=== PATIENT | male | born 1970 | race Caucasian/White ===

== ENCOUNTER 2020-08-18 16:52 | Emergency (ER) | payer OTHER, SELFPAY ==
[2020-08-18] VITALS (20 sets, daily range): BP systolic 117–171; BP diastolic 71–84; PULSE 52–70; RESP 14–24; TEMP 36.5; O2SAT 95–97
--- NOTE | 2020-08-18 16:45 | RT.EKG_ITS ---
APPROVED REPORT Exam: Resting ECG Patient Location: E HR:64 bpm ECG Measurements Heart Rate 64 AXIS WA 175 P 67 QRSd 102 QRS 86 QT 377 T 15 QTc 389 Conclusion Sinus rhythm...normal P axis, V-rate 60- 99 flat t waves III, aVF, no stemi
--- NOTE | 2020-08-18 17:00 | DI.RAD_ITS ---
EXAM: XR PORTABLE CHEST AP CLINICAL HISTORY: chest pain TECHNIQUE: 2D digital imaging was performed. COMPARISON: No exams were available for comparison FINDINGS: LUNGS: Clear. No pleural abnormality seen. HEART: Normal. MEDIASTINUM: Normal. BONES: Degenerative changes in both shoulders. IMPRESSION: No acute pulmonary findings. DATA REPOSITORY: RADIATION DOSE DELIVERED:
[2020-08-18 17:24] LABS: Abs Immature Grans 0.01 10^3/uL (0.0-0.06); Absolute Basophil Count 0.04 10^3/uL (0.0-0.2); Absolute Eosinophil Count 0.17 10^3/uL (0.0-0.7); Absolute Lymphocyte Count 1.86 10^3/uL (1.2-3.4); Absolute Monocyte Count 0.44 10^3/uL (0.1-0.8); Absolute Neutrophil Count 3.86 10^3/uL (1.2-6.7); Basophils % 0.6; Eosinophils % 2.7; HCT 45.2 % (40.0-50.0); HGB 15.6 g/dL (13.5-17.5); Immature Grans % 0.2; Lymphocytes % 29.2; MCH 31.5 pg (27.0-33.0); MCHC 34.5 % (32.0-36.0); MCV 91.1 fL (80-95); MPV 9.5 fL (8.0-11.0); Monocytes % 6.9; Neutrophils % 60.4; Nucleated RBC 0 %; Platelet Count 285 10^3/uL (130-400); RBC 4.96 10^6/uL (4.36-5.78); RDW 12.6 % (11.8-14.1); RDW-SD 42.3 fL; WBC 6.38 10^3/uL (4.4-10.8)
--- NOTE | 2020-08-18 17:42 | DI.VRAD_ITS ---
PROCEDURE INFORMATION: Exam: XR Chest, 1 View Exam date and time: 08/18/2020 5:09 PM Age: 50 years old Clinical indication: Chest pain TECHNIQUE: Imaging protocol: XR of the chest Views: 1 view. Other technique: Portable exam. COMPARISON: No relevant prior studies available. FINDINGS: Lungs: Unremarkable. No consolidation. Pleural space: Unremarkable. No pleural effusion. No pneumothorax. Heart/Mediastinum: Unremarkable. No cardiomegaly. Bones/joints: Unremarkable. Other findings: The patient is lordotically positioned. IMPRESSION: No evidence for acute abnormality. Dictated and Authenticated by: Liz Andres MD. Ordering:TORY Oneal MD
--- NOTE | 2020-08-18 17:53 | ED.GENADUL_ITS ---
Discharge Plan Disposition Patient Disposition: HOME Condition: Stable Discharge Details Clinical Impression: Chest pain Primary Care Provider: Connie Strong ED Provider: Jm Lomax Home Meds and New Rx's Prescriptions: Continued sildenafil [Viagra] 25 mg Tablet 50 mg PO DAILY PRNRF: 0 Discharge Instructions Instructions: Chest Pain (ED) Additional Instructions: Please take aspirin 325 mg daily. Please have outpatient stress test performed ideally within the next 72 hours. Please contact your primary care physician to arrange follow-up. Return to the ER immediately for any worsening or new concerning symptoms. Referrals: Connie Strong [Primary Care Provider] - Medical Decision Making 50-year-old male here with chest pain over the past 1 week, more persistent today. Pain seems musculoskeletal in etiology. Pain started after raking heavy snow off his roof. He has focal tenderness that reproduces the pain over left parasternal. Considered ACS given single risk factor of coronary artery disease in a primary relative at a young age. Screening ECG was reviewed and interpreted by me -no STEMI, please see report. Repeat ECG was interpreted by me and no significant change, please see report. Initial troponin and delta troponin at 3 hours both negative. Patient observed on cardiac monitoring during ED observation did not have any significant arrhythmias. Patient remained hemodynamically stable. Chest x-ray was reviewed and interpreted by radiology: No evidence for acute abnormality. Plan will be for outpatient follow-up. He has an appointment with his primary care physician tomorrow. While I suspect this is musculoskeletal, I recommended cardiac stress test in the outpatient setting. Usual customary discharge instructions were reviewed with the patient. HPI General Mode of arrival: ambulatory . Date/Time Provider Initiated Documentation: 08/18/20 17:07 . Limitations to Documentation: no limitations . Information obtained by: patient . HPI Narrative: 50-year-old male presents with chief complaint of chest pain. Patient states he said chest pain waxing and waning over the past 1 week. Pain is been mild to moderate. More persistent today and has been present all day. Pain seems worse when he is resting and actually improves when he is moving around. Pain is localized to the left anterior chest. He notes the pain did start initially after raking heavy snow off of his roof. He has no associated shortness of breath or leg swelling. Pain does not radiate anywhere else. Related Data Home Medications Medication Instructions Recorded Confirmed sildenafil [Viagra] 50 mg PO DAILY PRN 12/28/20 12/28/20 Allergies Allergy/AdvReac Type Severity Reaction Status Date / Time codeine AdvReac Unverified 08/18/20 17:02 General Stated Complaint: Chest Pain IDANIA: 2 Review of Systems All systems reviewed & are unremarkable except as noted in HPI and below Cardiovascular Cardiovascular: Reports as per HPI Respiratory Respiratory: Reports as per HPI Gastrointestinal Gastrointestinal: Denies nausea PFSH Social History Smoking/Tobacco Use Status: Never Smoking risk assessment performed?: Yes Alcohol Intake: current Alcohol Intake frequency: a few times a week Alcohol type: beer and wine Drug use: Never Substance use type: does not use Do you feel safe at home: Yes Do you feel safe in your relationship?: Yes Exam Const General: cooperative and no acute distress HENMT Mouth: moist mucous membranes Eyes Conjunctivae: normal conjunctivae Sclera: normal sclerae Neck Neck: trachea midline Chest Chest: no crepitus and tenderness pectoral muscle on the left (Parasternal) Resp Auscultation: clear to auscultation bilaterally, no rales, no rhonchi and no wheezes Cardio Jugular venous pressure: no JVD Rate: regular rate and not tachycardic Rhythm: regular rhythm GI Palpation: soft, not firm, no guarding, no masses, not rigid and nontender Skin General skin exam: no rashes or lesions noted Neuro General: patient alert, patient awake and tone normal Extrem General: no calf tenderness and no edema Psych Appearance: grossly normal Mental Status: mental status grossly normal Course Vital Signs Vital signs: Vital Signs Temperature 36.5 C 08/18/20 16:58 Pulse 64 08/18/20 16:58 Respiratory Rate 20 08/18/20 16:58 Blood Pressure 171/84 H 08/18/20 16:58 Pulse Oximetry 97 08/18/20 16:58 Temperature 36.5 C 08/18/20 16:58 Temperature Source Skin 08/18/20 16:58 Pulse 60 08/18/20 17:28 Pulse 63 08/18/20 17:40 Respiratory Rate 15 08/18/20 17:40 Respiratory Effort Non-Labored 08/18/20 17:07 Respiratory Depth Normal 08/18/20 17:07 Respiratory Pattern Normal 08/18/20 17:07 Blood Pressure 140/78 08/18/20 17:28 Blood Pressure Mean 91 08/18/20 17:28 Blood Pressure Position Sitting 08/18/20 16:58 Pulse Oximetry 96 08/18/20 17:40 Oxygen Delivery Method Room Air 08/18/20 16:58 Oxygen Flow Rate 0 08/18/20 16:58 Pain Level 2 08/18/20 16:58 Lab/Test Results Lab/Test Results: Laboratory Tests Range/Units 08/18/20 17:05 WBC (4.4-10.8) 10^3/uL 6.38 RBC (4.36-5.78) 10^6/uL 4.96 Hgb (13.5-17.5) g/dL 15.6 Hct (40.0-50.0) % 45.2 MCV (80-95) fL 91.1 MCH (27.0-33.0) pg 31.5 MCHC (32.0-36.0) % 34.5 RDW (11.8-14.1) % 12.6 Plt Count (130-400) 10^3/uL 285 MPV (8.0-11.0) fL 9.5 Immature Gran % 0.2 Neutrophils % 60.4 Lymphocytes % 29.2 Monocytes % 6.9 Eosinophils % 2.7 Basophils % 0.6 Nucleated RBC % % 0 Absolute Neutrophils (1.2-6.7) 10^3/uL 3.86 Absolute Lymphocytes (1.2-3.4) 10^3/uL 1.86 Absolute Monocytes (0.1-0.8) 10^3/uL 0.44 Absolute Eosinophils (0.0-0.7) 10^3/uL 0.17 Absolute Basophils (0.0-0.2) 10^3/uL 0.04
[2020-08-18 17:55] LABS: ALT 42 U/L (16-63); AST 24 U/L (15-37); Alkaline Phosphatase 42 U/L (46-116); Anion Gap 8.2 mmol/L (3-11); BUN 18 mg/dL (7-18); Bilirubin, Total 0.4 mg/dL (0.2-1.0); CO2 25.8 mmol/L (21.0-32.0); CREATININE 1.18 mg/dL (0.70-1.30); Calcium 8.7 mg/dL (8.5-10.1); Chloride 105 mmol/L (98-107); Glucose 119 mg/dL (74-106); Potassium 3.5 mmol/L (3.5-5.1); Sodium 139 mmol/L (136-145); Total Protein 7.2 g/dL (6.4-8.2); Troponin I < 0.05 ng/mL (<0.06)
[2020-08-18 18:01] LABS: D-Dimer 312 ng/mlFEU (<500)
[2020-08-18] MEDS: Aspirin 81 MG CHEW 324 MG CH (18:02)
[2020-08-18 20:25] LABS: Troponin I < 0.05 ng/mL (<0.06)
== END 2020-08-18 20:45 | disposition home or self-care (01) ==
PROVIDERS: Emergency Provider Student in an Organized Health Care Education/Training Program; PCP Family Medicine
DX: R07.89 Other chest pain (principal)
CPT/HCPCS: 36415; 80053; 93005; 99285; 71045; 84484; 85025; 85379; 93010; 99284